=== PATIENT | female | born 1985 | race African-American/Black ===

== ENCOUNTER 2021-07-04 15:08 | Emergency (ER) | payer OTHER ==
[~2021-07-04] VITALS: Ht 160 cm; Wt 79.0 kg
[2021-07-04 15:14] VITALS: BP 112/73
[2021-07-04 15:44] LABS: BASOPHILS % 0.3 % (0.0-2.0); EOSINOPHILS % 1.1 % (0.0-5.0); HEMATOCRIT. 41.6 % (36.0-48.0); HEMOGLOBIN. 14.1 g/dL (12.0-16.0); LYMPHOCYTES % 14.4 % (20.0-50.0); MEAN CORPUSCULAR HEMOGLOBIN 30.9 pg (28.0-32.0); MEAN CORPUSCULAR VOLUME 90.8 fL (81.0-99.0); MEAN PLATELET VOLUME 8.6 fl (7.4-10.4); MONOCYTES % 5.3 % (2.0-8.0); NEUTROPHILS % 78.9 % (40.0-76.0); PLATELET 267 x1000/uL (130-400); RED BLOOD CELL COUNT 4.58 mill/uL (4.2-5.4); RED CELL DISTRIBUTION WIDTH 13.5 % (11.6-14.6)
[2021-07-04 15:48] LABS: CHLORIDE 109 mEq/L (98-107)
== END 2021-07-04 21:07 | disposition left against medical advice (07) ==
LOC: ER 15:08
DX: R07.9 Chest pain, unspecified (principal); R42 Dizziness and giddiness; R20.0 Anesthesia of skin
CPT/HCPCS: 36415; 71045; 80053; 83880; 84484; 85025; 93005; 99285

== ENCOUNTER 2024-04-15 20:41 | Emergency (ER) | payer MEDICAID, OTHER ==
[~2024-04-15] VITALS: Ht 160 cm; Wt 82.0 kg
[2024-04-15 20:56] VITALS: O2SAT 100
[2024-04-15] MEDS ORDERED: PREN-28 MT (23:39)
[2024-04-15 23:56] VITALS: BP 121/76; PULSE 84; RESP 18; TEMP 36.7; O2SAT 100
== END 2024-04-15 23:59 | disposition home or self-care (01) ==
LOC: ER 20:41
DX: Z32.01 Encounter for pregnancy test, result positive (principal); I10 Essential (primary) hypertension
CPT/HCPCS: 81025; 99282